=== PATIENT | male | born 1970 | race African-American/Black ===

== ENCOUNTER 2024-03-06 06:55 | Day surgery (SDC) | payer BC ==
[2024-03-05 10:05] VITALS: BMI 34.9
[2024-03-06] MEDS ORDERED: CEFAZOLIN 2 GM VIAL ONE ×2 (09:04→11:56)
[2024-03-06] MEDS ORDERED: Rocuronium Bromide 10 MG/ML (10ML VIAL) ONE (09:09)
[2024-03-06] MEDS ORDERED: HYDROmorphone 2 MG/ML VIAL ONE (09:09)
[2024-03-06] MEDS ORDERED: Ondansetron PF 4 MG/2 ML Vial ONE (09:09)
[2024-03-06] MEDS ORDERED: fentaNYL PF 100 MCG/2 ML SYRINGE ONE (09:09)
[2024-03-06] MEDS ORDERED: Lidocaine 1% PF 5 ML VIAL ONE (09:09)
[2024-03-06] MEDS ORDERED: PROPOFOL 20 ML ONE (09:09)
[2024-03-06] MEDS ORDERED: Midazolam HCl 2 mg/2 ml Vial ONE (09:09)
[2024-03-06] MEDS ORDERED: Dexamethasone 20 MG/5 ML VIAL ONE (09:34)
[2024-03-06] MEDS ORDERED: Labetalol HCl 100 MG/20 ML VIAL ONE (09:35)
[2024-03-06] MEDS ORDERED: SUGAMMADEX SODIUM 200 MG/2 ML VIAL ONE (10:28)
[2024-03-06] MEDS ORDERED: fentaNYL 50 mcg/mL 1 mL Vial ONE ×3 (10:56→13:00)
[2024-03-06] MEDS ORDERED: Tamsulosin HCl 0.4 MG CAP ONE (10:56)
[2024-03-06] MEDS ORDERED: Cyclobenzaprine 10 MG TAB ONE (11:02)
[2024-03-06] MEDS ORDERED: HYDROmorphone 0.5 MG/0.5 ML SYRINGE ONE (11:12)
[2024-03-06] MEDS ORDERED: hydrALAZINE 20 MG/ML VIAL ONE (11:46)
[2024-03-06] MEDS ORDERED: Sodium Chloride 0.9% 100 ML ONE (11:57)
== END 2024-03-06 14:09 | disposition home or self-care (01) ==
LOC: SDC 06:55
PROVIDERS: ATTEND Neurological Surgery
PROC: 0RG10A0 Fusion of Cervical Vertebral Joint with Interbody Fusion Device, Anterior Approach, Anterior Column, Open Approach (ICD-10-PCS; principal; 2024-03-06)
PROC: 0RB30ZZ Excision of Cervical Vertebral Disc, Open Approach (ICD-10-PCS; principal; 2024-03-06)
DX: M48.02 Spinal stenosis, cervical region (principal); M54.12 Radiculopathy, cervical region; G99.2 Myelopathy in diseases classified elsewhere; M19.90 Unspecified osteoarthritis, unspecified site; I10 Essential (primary) hypertension; J45.909 Unspecified asthma, uncomplicated; Z88.8 Allergy status to other drugs, medicaments and biological substances; Z79.1 Long term (current) use of non-steroidal anti-inflammatories (NSAID); Z79.899 Other long term (current) drug therapy
CPT/HCPCS: 93005; 93010; C1713; C1889; J0360; J1100; J2250; J2405; J2704; J3010

== ENCOUNTER 2024-11-14 13:46 | Inpatient (IN) | payer BC ==
[2024-11-14] MEDS ORDERED: Iopamidol-370 76% 500 ML MDV (1 ML CHARGE) ONE (13:54)
[2024-11-14 14:46] LABS: #Basophils 0.03 10x3/uL (0.0-0.2); #Eosinophils 0.17 10x3/uL (0.0-0.7); #Monocytes 0.67 10x3/uL (0.11-0.59); #Neutrophils 5.24 10x3/uL (1.40-6.50); %Basophils 0.4 % (0.0-1.0); %Eosinophils 2.2 % (0.0-10.0); %Lymphocytes 19.2 % (21.0-51.0); %Monocytes 8.9 % (0.0-10.0); %Neutrophils 69.2 % (42.0-75.0); Hematocrit 42.8 % (42.0-52.0); Hemoglobin 14.0 g/dL (14.0-18.0); Mean Corpuscular Hemoglobin 28.3 pg (27.0-31.0); Mean Corpuscular Volume 86.5 fL (78.0-98.0); Platelet Count 221 10x3/uL (130-400); Red Blood Cell (RBC) Count 4.95 mill/uL (4.70-6.10); White Blood Cell (WBC) Count 7.57 10x3/uL (4.8-10.8)
[2024-11-14 15:04] LABS: Troponin I 0.040 ng/mL (< 0.028)
[2024-11-14 15:07] LABS: ALT (SGPT) 16 U/L (Less than 45); AST (SGOT) 25 U/L (11-34); Albumin 3.8 g/dL (3.1-4.5); Alkaline Phosphatase 52 U/L (40-110); Anion Gap 14 mmol/L (10-20); BUN (Urea Nitrogen) 11 mg/dL (8.4-25.7); Bilirubin, Total 0.7 mg/dL (0.3-1.2); Calc. Creatinine Clearance 0 mL/min (70-130); Calcium 8.9 mg/dL (7.8-10.44); Carbon Dioxide 22 mmol/L (22-29); Chloride 105 mmol/L (98-107); Globulin 3.6 g/dL (2.4-3.5); Glucose 113 mg/dL (70-105); Potassium 3.7 mmol/L (3.5-5.1); Sodium 137 mmol/L (136-145)
[2024-11-14] MEDS ORDERED: Aspirin Chewable 81 MG TAB ONE (15:11)
[2024-11-14] MEDS ORDERED: Ondansetron PF 4 MG/2 ML Vial IVP PRN (17:18)
[2024-11-14] MEDS ORDERED: Acetaminophen 325 MG TAB PO PRN (17:18)
[2024-11-14] MEDS ORDERED: Senokot S 8.6-50 MG TAB PO PRN (17:18)
[2024-11-14] MEDS ORDERED: Calcium Carbonate 500 MG ChewTAB PO PRN (17:18)
[2024-11-14] MEDS ORDERED: Melatonin 3 MG TAB PO PRN (17:18)
[2024-11-14] MEDS ORDERED: HYDROcodone/Acetaminophen 5/325 mg Tablet PO PRN (17:21)
[2024-11-14] MEDS ORDERED: Heparin 5,000 UNITS/ML VIAL ONE (17:28)
[2024-11-14] MEDS ORDERED: Heparin 10,000 UNITS/ 10 ML VIAL SLOW IVP SCH (17:30)
[2024-11-14 18:57] LABS: INR-International Normal Ratio 1.1; Prothrombin Time 14.4 sec (12.0-14.7)
[2024-11-14 18:58] LABS: PTT 24.7 sec (22.9-36.1)
[2024-11-14 19:34] LABS: Troponin I 0.035 ng/mL (< 0.028)
[2024-11-14 20:09] VITALS: BMI 33.7
[2024-11-15 04:03] LABS: #Basophils 0.07 10x3/uL (0.0-0.2); #Eosinophils 0.30 10x3/uL (0.0-0.7); #Monocytes 1.25 10x3/uL (0.11-0.59); #Neutrophils 5.26 10x3/uL (1.40-6.50); %Basophils 0.7 % (0.0-1.0); %Eosinophils 3.0 % (0.0-10.0); %Lymphocytes 29.9 % (21.0-51.0); %Monocytes 12.7 % (0.0-10.0); %Neutrophils 53.4 % (42.0-75.0); Hematocrit 44.2 % (42.0-52.0); Hemoglobin 13.9 g/dL (14.0-18.0); Mean Corpuscular Hemoglobin 27.7 pg (27.0-31.0); Mean Corpuscular Volume 88.0 fL (78.0-98.0); Platelet Count 225 10x3/uL (130-400); Red Blood Cell (RBC) Count 5.02 mill/uL (4.70-6.10); White Blood Cell (WBC) Count 9.86 10x3/uL (4.8-10.8)
[2024-11-15 04:45] LABS: Anion Gap 14 mmol/L (10-20); BUN (Urea Nitrogen) 14 mg/dL (8.4-25.7); Calc. Creatinine Clearance 154 mL/min (70-130); Calcium 8.8 mg/dL (7.8-10.44); Carbon Dioxide 26 mmol/L (22-29); Chloride 105 mmol/L (98-107); Glucose 104 mg/dL (70-105); Potassium 4.1 mmol/L (3.5-5.1); Sodium 141 mmol/L (136-145)
[2024-11-15] MEDS: Apixaban 5 MG TAB PO SCH ×2 (12:51→21:11)
[2024-11-15] MEDS: Gabapentin 300 MG CAP PO SCH (21:11)
[2024-11-16 03:48] LABS: #Basophils 0.04 10x3/uL (0.0-0.2); #Eosinophils 0.24 10x3/uL (0.0-0.7); #Monocytes 1.00 10x3/uL (0.11-0.59); #Neutrophils 3.67 10x3/uL (1.40-6.50); %Basophils 0.6 % (0.0-1.0); %Eosinophils 3.4 % (0.0-10.0); %Lymphocytes 30.5 % (21.0-51.0); %Monocytes 14.0 % (0.0-10.0); %Neutrophils 51.2 % (42.0-75.0); Hematocrit 39.9 % (42.0-52.0); Hemoglobin 12.9 g/dL (14.0-18.0); Mean Corpuscular Hemoglobin 28.2 pg (27.0-31.0); Mean Corpuscular Volume 87.3 fL (78.0-98.0); Platelet Count 253 10x3/uL (130-400); Red Blood Cell (RBC) Count 4.57 mill/uL (4.70-6.10); White Blood Cell (WBC) Count 7.15 10x3/uL (4.8-10.8)
[2024-11-16 04:22] LABS: Anion Gap 12 mmol/L (10-20); BUN (Urea Nitrogen) 10 mg/dL (8.4-25.7); Calc. Creatinine Clearance 157 mL/min (70-130); Calcium 8.4 mg/dL (7.8-10.44); Carbon Dioxide 23 mmol/L (22-29); Cardiac Risk 3.1 (Less than 4.5); Chloride 108 mmol/L (98-107); Cholesterol 145 mg/dl (< 200 Desired); Glucose 102 mg/dL (70-105); HDL Cholesterol 47 mg/dL (>60 Neg Risk); LDL Cholesterol, Calculated 86 mg/dL; Potassium 3.9 mmol/L (3.5-5.1); Sodium 139 mmol/L (136-145); Triglycerides 60 mg/dL (Less than 150)
[2024-11-16 10:08] VITALS: TEMP 98.3
[2024-11-16] MEDS: Losartan 25 MG TAB PO SCH (10:10)
[2024-11-16] MEDS: Ferrous Gluconate 324 MG TAB PO SCH (10:11)
[2024-11-16] MEDS: Cholecalciferol 1,000 UNITS (25 MCG) TAB PO SCH (10:11)
[2024-11-16] MEDS: Multivitamin W/ Minerals 1 TAB PO SCH (10:11)
[2024-11-16 12:50] VITALS: BP 124/78
[2024-11-22] MEDS ORDERED: Apixaban 5 MG TAB PO SCH (09:00)
== END 2024-11-16 14:00 | disposition home or self-care (01) | DRG 176 ==
LOC: ERS 13:46 → PCU 17:14
PROVIDERS: ADMIT Hospitalist; ATTEND Family Medicine
DX: I26.99 Other pulmonary embolism without acute cor pulmonale (principal); I10 Essential (primary) hypertension; Z79.899 Other long term (current) drug therapy; R73.03 Prediabetes; G62.9 Polyneuropathy, unspecified; E66.811 Obesity, class 1; Z68.33 Body mass index [BMI] 33.0-33.9, adult; Z79.01 Long term (current) use of anticoagulants
CPT/HCPCS: 36415; 71045; 71275; 80048; 80053; 80061; 83036; 83880; 84484; 85025; 85379; 85610; 85730; 87428; 93005; 93306; 93970; 96374; J1644; Q9967